=== PATIENT | male | born 1970 | race Caucasian/White ===

== ENCOUNTER 2017-12-08 20:47 | Emergency (ER) | payer BC ==
[2017-12-08] MEDS ORDERED: Ketorolac INJ* 30 MG/ML 1 ML VIAL IM ONE (23:12)
--- NOTE | 2017-12-08 23:27 | ED ---
Throat Pain/Nasal Congestion - HPI Summary HPI Summary: 47 male presents with nasal deformity. He states that he got elbow in the nose. Had immediate pain to his nose. No blood noted. No other injury. Has full range of motion of the eye. Nontender around his eyes. He denies any headache. He denies any neck pain. - History of Current Complaint Chief Complaint: EDFacialInjury Time Seen by Provider: 12/08/17 23:00 - Allergies/Home Medications Allergies/Adverse Reactions: Allergies Allergy/AdvReac Type Severity Reaction Status Date / Time No Known Allergies Allergy Verified 12/08/17 21:06 PMH/Surg Hx/FS Hx/Imm Hx Endocrine/Hematology History: Denies: Hx Diabetes, Hx Thyroid Disease Cardiovascular History: Denies: Hx Hypertension Respiratory History: Denies: Hx Asthma, Hx Chronic Obstructive Pulmonary Disease (COPD) GI History: Denies: Hx Ulcer - Surgical History Surgery Procedure, Year, and Place: left knee, umbilical hernia repair Infectious Disease History: No Infectious Disease History: Reports: Traveled Outside the in Last 30 Days - [place] Denies: Hx Clostridium Difficile, Hx Hepatitis, Hx Human Immunodeficiency Virus (HIV), Hx of Known/Suspected MRSA, Hx Shingles, Hx Tuberculosis, Hx Known/ Suspected VRE, Hx Known/Suspected VRSA, History Other Infectious Disease - Family History Known Family History: Positive: None - Social History Alcohol Use: Occasionally Substance Use Type: Reports: None Smoking Status (MU): Never Smoked Tobacco Review of Systems Negative: Fever Positive: Other - nasal deformity Negative: Chest Pain Negative: Shortness Of Breath All Other Systems Reviewed And Are Negative: Yes Physical Exam Triage Information Reviewed: Yes Vital Signs On Initial Exam: Initial Vitals Temp Pulse Resp BP Pulse Ox 97.6 F 70 16 121/85 98 12/08/17 21:03 12/08/17 21:03 12/08/17 21:03 12/08/17 21:03 12/08/17 21:03 Vital Signs Reviewed: Yes Appearance: Positive: Well-Appearing Skin: Positive: Warm, Dry Head/Face: Positive: Other - deformity to nose noted, nontender around orbit Eyes: Positive: Normal, EOMI, DANNA, Conjunctiva Clear ENT: Positive: Pharynx normal, TMs normal Respiratory/Lung Sounds: Positive: Clear to Auscultation, Breath Sounds Present Cardiovascular: Positive: Normal, RRR Musculoskeletal: Positive: Normal Neurological: Positive: Normal Psychiatric: Positive: Normal Diagnostics - Vital Signs Vital Signs Temp Pulse Resp BP Pulse Ox 12/08/17 21:03 97.6 F 70 16 121/85 98 - Laboratory Lab Statement: Any lab studies that have been ordered have been reviewed, and results considered in the medical decision making process. EENT Course/Dx - Course Course Of Treatment: 47 male presents with nasal deformity. He states that he got elbow in the nose. Had immediate pain to his nose. No blood noted. No other injury. Has full range of motion of the eye. Nontender around his eyes. He denies any headache. He denies any neck pain. On exam deformity noted to nose. Attempted to reduce fracture and got area better alinement but is not completely better. Discussed will have follow-up with ENT. Told placed ice on the area. Patient understands agrees with plan. - Differential Diagnoses Differential Diagnoses: Epistaxis, Fracture - Diagnoses Provider Diagnoses: Nasal fracture Discharge - Sign-Out/Discharge Documenting (check all that apply): Patient Departure - Discharge Plan Condition: Good Disposition: HOME Patient Education Materials: Nasal Fracture (ED) Referrals: Bruce Merida MD [Medical Doctor] - No Primary Care Phys,NOPCP [Primary Care Provider] - Additional Instructions: ice area take tyenlol or ibuprofen every 6 hours follow up with ENT Return to ED if develop any new or worsening symptoms - Billing Disposition and Condition Condition: GOOD Disposition: Home
[2017-12-08 23:34] VITALS: BP 145/78
== END 2017-12-08 23:33 | disposition home or self-care (01) ==
LOC: ED 20:47
DX: S02.2XXA Fracture of nasal bones, initial encounter for closed fracture (principal); W50.0XXA Accidental hit or strike by another person, initial encounter; Y92.9 Unspecified place or not applicable
CPT/HCPCS: 99282